=== PATIENT | male | born 2000 | race American Indian/Alaskan Native ===

== ENCOUNTER 2019-12-26 14:26 | Emergency (ER) | payer OTHER ==
[2019-12-26] MEDS ORDERED: Lidocaine 2% Viscous Solution 15 ML Cup PO ONE (14:33)
[2019-12-26] MEDS ORDERED: Acetaminophen/Codeine 300-30 MG Tab PO ONE (14:34)
[2019-12-26] MEDS ORDERED: Amoxicillin 500 MG Cap PO ONE (14:34)
--- NOTE | 2019-12-26 14:49 | EDM.PDOC ---
Scribed by Kimberli Saldaña 12/26/19 1440 for Haris Guaman MD ED HPI GENERAL MEDICAL PROBLEM - General Chief Complaint: ENT Problem Stated Complaint: bad tooth ache Time Seen by Provider: 12/26/19 14:32 Source of Information: Reports: Patient, RN, RN Notes Reviewed History Limitations: Reports: No Limitations - History of Present Illness INITIAL COMMENTS - FREE TEXT/NARRATIVE: Pt presents to ED via POV wtih c/o R) lower jaw pain. Pt states that he noticed this this morning. Pt states that he has not seen dentist for wisdom teeth. Onset: Gradual Duration: Day(s): (3), Getting Worse Location: Reports: Other (Dental) Quality: Reports: Ache, Throbbing Severity: Severe Improves with: Reports: None Worsens with: Reports: None Associated Symptoms: Reports: No Other Symptoms - Related Data Allergies Allergy/AdvReac Type Severity Reaction Status Date / Time No Known Allergies Allergy Verified 12/26/19 14:31 Home Meds: Home Meds . [No Known Home Meds] 12/26/19 [History] Past Medical History - Past Health History Medical/Surgical History: Denies Medical/Surgical History Social & Family History - Family History Family Medical History: Noncontributory - Living Situation & Occupation Living situation: Reports: with Family ED ROS ENT - Review of Systems Review Of Systems: Comprehensive ROS is negative, except as noted in HPI. ED EXAM, ENT - Physical Exam Exam: See Below Exam Limited By: No Limitations General Appearance: Alert, WD/WN, No Apparent Distress Eye Exam: Bilateral Eye: Normal Inspection Ears: Normal External Exam, Normal Canal, Hearing Grossly Normal, Normal TMs Nose: Normal Inspection, Normal Mucousa, No Blood Mouth/Throat: Normal Lips, Dental Abcess, Dental Pain (Rt mandibular molar), Dental Tenderness Head: Atraumatic, Normocephalic Neck: Normal Inspection, Supple, Non-Tender, Full Range of Motion Respiratory/Chest: No Respiratory Distress Neurological: Alert, Oriented, CN II-XII Intact, No Motor/Sensory Deficits Psychiatric: Normal Mood Skin: Warm, Dry, Intact, Normal Color Course - Vital Signs Last Recorded V/S: Last Vital Signs Temp 98.4 F 12/26/19 14:31 Pulse 91 12/26/19 14:31 Resp 16 11/07/20 14:31 BP 148/90 H 11/07/20 14:31 Pulse Ox 100 12/26/19 14:31 - Orders/Labs/Meds Meds: Medications Discontinued Medications Generic Name Dose Route Start Last Admin Trade Name Maxime PRN Reason Stop Dose Admin Acetaminophen/Codeine Phosphate 2 tab 12/26/19 14:34 Tylenol With Codeine No.3 300mg/30mg PO 12/26/19 14:35 ONETIME ONE Amoxicillin 500 mg 12/26/19 14:34 Amoxil PO 12/26/19 14:35 ONETIME ONE Lidocaine HCl 15 ml 12/26/19 14:33 Xylocaine 2% Viscous PO 12/26/19 14:34 ONETIME ONE Departure - Departure Time of Disposition: 14:38 Disposition: Home, Self-Care 01 Condition: Good Clinical Impression: Dental abscess, Toothache - Discharge Information *PRESCRIPTION DRUG MONITORING PROGRAM REVIEWED*: No *COPY OF PRESCRIPTION DRUG MONITORING REPORT IN PATIENT MASSIEL: No Instructions: Dental Abscess Forms: ED Department Discharge Additional Instructions: Rx: Tylenol No. 3 Rx: Amoxicillin 500mg Rx: Viscous Lidocaine 2% Follow up with dentist Saturday. Sepsis Event Note (ED) - Focused Exam Vital Signs: Vital Signs Temp Pulse Resp BP Pulse Ox 12/26/19 14:31 98.4 F 91 16 148/90 H 100 I have read and agree with the documentation that has been completed regarding this visit. By signing this record, I attest that the documentation was completed in my physical presence and is an accurate record of the encounter.
== END 2019-12-26 14:55 | disposition home or self-care (01) ==
LOC: DL.ED 14:26
DX: K04.7 Periapical abscess without sinus (principal)
CPT/HCPCS: 99282; A9270